=== PATIENT | male | born 2000 ===

== ENCOUNTER 2024-09-27 23:18 | Emergency (ER) | payer OTHER ==
[~2024-09-27] VITALS: Ht 177.8 cm; Wt 81.7 kg
[2024-09-27] MEDS ORDERED: Naproxen 250 MG TAB PO ONE (23:35)
[2024-09-28] MEDS ORDERED: NAPR500 PO (00:19)
== END 2024-09-28 01:00 | disposition home or self-care (01) ==
LOC: ER 23:18
DX: S20.219A Contusion of unspecified front wall of thorax, initial encounter (principal); V44.5XXA Car driver injured in collision with heavy transport vehicle or bus in traffic accident, initial encounter
CPT/HCPCS: 71046; 72170; 93005; 93010; 99284-25; A9270